=== PATIENT | male | born 1985 | race Caucasian/White ===

== ENCOUNTER 2023-08-09 12:00 | Emergency (ER) | payer MEDICAID ==
[~2023-08-09] VITALS: Ht 185.4 cm; Wt 99.8 kg
[2023-08-09 12:34] VITALS: BP 137/81; PULSE 77; RESP 20; TEMP 97.9; O2SAT 99
[2023-08-09] MEDS ORDERED: ONDA-188 SL (13:49)
[2023-08-09] MEDS ORDERED: ACET-2214 PO (13:49)
== END 2023-08-09 14:15 | disposition home or self-care (01) ==
LOC: MED 12:00
DX: S02.2XXA Fracture of nasal bones, initial encounter for closed fracture (principal); Z79.899 Other long term (current) drug therapy; Y04.2XXA Assault by strike against or bumped into by another person, initial encounter; Y93.89 Activity, other specified; Y92.89 Other specified places as the place of occurrence of the external cause; Y99.8 Other external cause status
CPT/HCPCS: 70160; 99283